=== PATIENT | female | born 1975 | race Caucasian/White ===

== ENCOUNTER 2017-04-20 21:46 | Emergency (ER) | payer SELFPAY ==
[~2017-04-20 21:46] MED LIST: DEPO150I IM; MEDR150P IM
--- NOTE | 2017-04-20 22:04 | PD ---
HPI Chief Complaint: Chest Pain Time Seen by Provider: 21:54 Travel History International Travel<30 days: No Contact w/Intl Traveler<30days: No Traveled to known affect area: No History of Present Illness HPI 41-year-old female complains of chest pain, low back pain, coughing congestion. Patient states that she starting having coughing congestion with productive cough for the past 2 weeks. Patient started having left leg cramping 2 days ago. Patient started having low back pain with radiation to the chest area about 2 hours prior to arrival. Patient states the pain is sharp pain including anterior and posterior aspect of the chest wall. Patient denies any palpitation diaphoresis. Patient states that she has intermittent nausea. Patient also complains of shortness of breath. Patient states that the chest pain is worse with deep inspiration. Patient denies any headache. Patient denies any neck pain. Patient denies any fever chills. Patient denies abdominal pain. Patient denies any dysuria or frequency. Patient denies vaginal discharge or bleeding. Patient denies history hypertension, diabetes, hyperlipidemia. Patient is a nonsmoker. Patient denies family history of heart disease. PFSH Past Medical History Diminished Hearing: No Past Surgical History Tonsillectomy: Yes Other Surgery: Yes (BREAST AUGMENTATION) Social History Alcohol Use: Yes (beer daily) Tobacco Use: Yes (1 2 PPD) Substance Use: No Allergies-Medications (Allergen,Severity, Reaction): Coded Allergies: No Known Allergies (Verified , 01/21/17) Reported Meds & Prescriptions Reported Meds & Active Scripts Active Depo-Provera Inj (Medroxyprogesterone Inj) 150 Mg/Ml Inj 150 Mg IM Q90D Review of Systems General / Constitutional: No: Fever Eyes: No: Visual changes HENT: No: Headaches Cardiovascular: Positive: Chest Pain or Discomfort Respiratory: Positive: Cough, Shortness of Breath Gastrointestinal: No: Abdominal Pain Genitourinary: No: Dysuria Musculoskeletal: No: Pain Skin: No Rash Neurologic: No: Weakness Psychiatric: No: Depression Endocrine: No: Polydipsia Hematologic/Lymphatic: No: Easy Bruising Physical Exam Narrative GENERAL: Well-nourished, well-developed patient. SKIN: Focused skin assessment warm/dry. HEAD: Normocephalic. EYES: No scleral icterus. No injection or drainage. NECK: Supple, trachea midline. No JVD or lymphadenopathy. CARDIOVASCULAR: Regular rate and rhythm without murmurs, gallops, or rubs. RESPIRATORY: Breath sounds equal bilaterally. No accessory muscle use. GASTROINTESTINAL: Abdomen soft, non-tender, nondistended. MUSCULOSKELETAL: No cyanosis, or edema. BACK: Nontender without obvious deformity. No CVA tenderness. Neurologic exam normal. Data Data Last Documented VS Vital Signs Date Time Temp Pulse Resp B/P (MAP) Pulse Ox O2 Delivery O2 Flow Rate FiO2 04/20/17 22:43 16 97 Room Air 04/20/17 22:28 108 Orders Orders Electrocardiogram (04/20/17 21:59) Complete Blood Count With Diff (04/20/17 21:59) Comprehensive Metabolic Panel (04/20/17 21:59) Creatine Kinase (Cpk) (04/20/17 21:59) Troponin I (04/20/17 21:59) Prothrombin Time / Inr (Pt) (04/20/17 21:59) Act Partial Throm Time (Ptt) (04/20/17 21:59) Urinalysis - C+S If Indicated (04/20/17 21:59) Thyroid Stimulating Hormone (04/20/17 21:59) Influenzae A/B Antigen (04/20/17 21:59) Chest, Single Ap (04/20/17 21:59) Iv Access Insert/Monitor (04/20/17 21:59) Ecg Monitoring (04/20/17 21:59) Oximetry (04/20/17 21:59) Ed Urine Pregnancytest Poc (04/20/17 21:59) Sodium Chlor 0.9% 1000 Ml Inj (Ns 1000 M (04/20/17 22:15) Ketorolac Inj (Toradol Inj) (04/20/17 23:00) Labs Laboratory Tests Test 04/20/17 22:10 04/20/17 22:20 White Blood Count 7.6 TH/MM3 Red Blood Count 4.26 MIL/MM3 Hemoglobin 15.0 GM/DL Hematocrit 44.9 % Mean Corpuscular Volume 105.5 FL Mean Corpuscular Hemoglobin 35.3 PG Mean Corpuscular Hemoglobin Concent 33.5 % Red Cell Distribution Width 12.7 % Platelet Count 183 TH/MM3 Mean Platelet Volume 8.0 FL Neutrophils (%) (Auto) 53.4 % Lymphocytes (%) (Auto) 39.0 % Monocytes (%) (Auto) 5.3 % Eosinophils (%) (Auto) 1.5 % Basophils (%) (Auto) 0.8 % Neutrophils # (Auto) 4.1 TH/MM3 Lymphocytes # (Auto) 2.9 TH/MM3 Monocytes # (Auto) 0.4 TH/MM3 Eosinophils # (Auto) 0.1 TH/MM3 Basophils # (Auto) 0.1 TH/MM3 CBC Comment DIFF FINAL Differential Comment Blood Urea Nitrogen 7 MG/DL Creatinine 0.76 MG/DL Random Glucose 94 MG/DL Total Protein 7.4 GM/DL Albumin 3.9 GM/DL Calcium Level 8.4 MG/DL Alkaline Phosphatase 59 U/L Aspartate Amino Transf (AST/SGOT) 23 U/L Alanine Aminotransferase (ALT/SGPT) 25 U/L Total Bilirubin 0.5 MG/DL Sodium Level 141 MEQ/L Potassium Level 3.9 MEQ/L Chloride Level 108 MEQ/L Carbon Dioxide Level 25.2 MEQ/L Anion Gap 8 MEQ/L Estimat Glomerular Filtration Rate 84 ML/MIN Total Creatine Kinase 124 U/L Troponin I LESS THAN 0.02 NG/ML Urine Color STRAW Urine Turbidity CLEAR Urine pH 6.0 Urine Specific [place] 1.003 Urine Protein NEG mg/dL Urine Glucose (UA) NEG mg/dL Urine Ketones NEG mg/dL Urine Occult Blood TRACE Urine Nitrite NEG Urine Bilirubin NEG Urine Leukocyte Esterase NEG Urine WBC 0-2 /hpf Urine Squamous Epithelial Cells 0-5 /hpf Urine Bacteria OCC /hpf Microscopic Urinalysis Comment CULT NOT INDICATED MDM Medical Decision Making Medical Screen Exam Complete: Yes Emergency Medical Condition: Yes Interpretation(s) 22 58 PM. CBC with WBC 7.6. Hemoglobin 15.0, hematocrit 44.9. MCV 105.5. CMP within normal limit. Calcium 8.4. Cardiac enzymes are normal. Influenza AB antigen negative. UA is negative. Urine test negative. Differential Diagnosis Differential diagnosis including musculoskeletal, angina, LA, PE, pneumothorax. Narrative Course 41-year-old female with chest pain, low back pain, coughing congestion. Toradol 30 mg IV. Diagnosis Primary Impression: Atypical chest pain Additional Impressions: Muscle strain URI (upper respiratory infection) Qualified Codes: J06.9 - Acute upper respiratory infection, unspecified; B97.89 - Other viral agents as the cause of diseases classified elsewhere Patient Instructions: General Instructions Additional Instructions: Take medication as needed for pain. Follow-up with personal physician. Return if increasing chest pain shortness of breath. Med/Other Pt SpecificInfo: Prescription(s) given Scripts Methocarbamol (Robaxin) 750 Mg Tab 750 MG PO QID for Muscle Spasm, #40 TAB 0 Refills Prov: Molina Iraheta MD 04/20/17 Ibuprofen (Ibuprofen) 600 Mg Tab 600 MG PO TID for Pain, #30 TAB 0 Refills Prov: Molina Iraheta MD 04/20/17 Disposition: 01 DISCHARGE HOME Condition: Stable Molina Iraheta MD Apr 20, 2017 22:04
[2017-04-20] MEDS ORDERED: SODIUM CHLOR 0.9% 1000 ML INJ 1,000 ML IV ONE (22:15)
[2017-04-20 22:28] VITALS: PULSE 108; RESP 18; O2SAT 97
[2017-04-20 22:29] LABS: AUTOMATED NEUTROPHIL # 4.1 TH/MM3 (1.8-7.7); BASOPHIL # 0.1 TH/MM3 (0-0.2); BASOPHIL % 0.8 % (0.0-2.0); EOSINOPHIL # 0.1 TH/MM3 (0-0.4); EOSINOPHIL % 1.5 % (0.0-4.0); HEMATOCRIT 44.9 % (35.0-46.0); LYMPHOCYTE # 2.9 TH/MM3 (1.0-4.8); MEAN CELL VOLUME 105.5 FL (80.0-100.0); MEAN CORPUSCULAR HEMOGLOBIN 35.3 PG (27.0-34.0); MEAN CORPUSCULAR HGB CONC 33.5 % (32.0-36.0); MONO % 5.3 % (0.0-8.0); MONOCYTE # 0.4 TH/MM3 (0-0.9); NEUT % 53.4 % (16.0-70.0); PLATELET COUNT 183 TH/MM3 (150-450); RED BLOOD COUNT 4.26 MIL/MM3 (4.00-5.30); RED CELL DISTRIBUTION WIDTH 12.7 % (11.6-17.2); WHITE BLOOD COUNT 7.6 TH/MM3 (4.0-11.0)
[2017-04-20 22:31] LABS: BILIRUBIN, URINE NEG (NEG); BLOOD, URINE TRACE (NEG); GLUCOSE,URINE NEG (NEG); KETONE, URINE NEG (NEG); NITRITE,URINE NEG (NEG); URINE LEUKOCYTE ESTERASE NEG (NEG)
[2017-04-20 22:40] LABS: CHLORIDE 108 MEQ/L (98-107); SODIUM (NA) 141 MEQ/L (136-145)
[2017-04-20 22:42] LABS: URINE COLOR STRAW (YELLW/STRAW)
[2017-04-20 22:43] VITALS: RESP 16; O2SAT 97
[2017-04-20 22:43] LABS: BACTERIA, URINE OCC /hpf; SQUAMOUS EPITHELIAL CELL URINE 0-5 /hpf (0-5)
[2017-04-20 22:44] LABS: ALBUMIN 3.9 GM/DL (3.4-5.0); BICARBONATE 25.2 MEQ/L (21.0-32.0); CALCIUM 8.4 MG/DL (8.5-10.1); GLUCOSE,RANDOM 94 MG/DL (74-106)
[2017-04-20 22:44] LABS: WBC, URINE 0-2 /hpf (0-5)
[2017-04-20 22:45] LABS: BLOOD UREA NITROGEN 7 MG/DL (7-18)
[2017-04-20 22:47] LABS: ALT (GPT) 25 U/L (10-53)
[2017-04-20 22:48] LABS: AST (GOT) 23 U/L (15-37); CREATININE 0.76 MG/DL (0.50-1.00); GLOMERULAR FILTRATION RATE 84 ML/MIN (>89)
[2017-04-20 22:49] LABS: TOTAL BILIRUBIN ADULT 0.5 MG/DL (0.2-1.0); TOTAL PROTEIN 7.4 GM/DL (6.4-8.2)
[2017-04-20 22:50] LABS: ALKALINE PHOSPHATASE 59 U/L (45-117)
[2017-04-20 22:52] LABS: TROPONIN I LESS THAN 0.02 NG/ML (0.02-0.05)
[2017-04-20] MEDS ORDERED: KETOROLAC TROMETHAMINE 30 MG/ML (IVP) VIAL IV PUSH ONE (23:00)
[2017-04-20] MEDS ORDERED: ROBA750T PO (23:03)
[2017-04-20] MEDS ORDERED: IBUP-232 PO (23:03)
[2017-04-20 23:08] LABS: PROTHROMBIN TIME - PATIENT 9.8 SEC (9.8-11.6)
--- NOTE | 2017-04-20 23:24 | RADRPT ---
EXAM DATE/TIME: 04/20/2017 22:58 [facility] COMPARISON: No previous studies available for comparison. INDICATIONS : Chest pain tonight. MEDICAL HISTORY : None. SURGICAL HISTORY : None. ENCOUNTER: Initial ACUITY: 1 day PAIN SCORE: 10/10 LOCATION: Bilateral chest FINDINGS: A single view of the chest demonstrates the lungs to be symmetrically aerated without evidence of mas s, infiltrate or effusion. The cardiomediastinal contours are unremarkable. Osseous structures are intact. CONCLUSION: 1. No acute cardiopulmonary disease. Pratik Hair MD on April 20, 2017 at 23:21 Board Certified Radiologist. This report was verified electronically.
[2017-04-20 23:27] VITALS: BP 113/77
--- NOTE | 2017-04-21 21:38 | EKG ---
Date Performed: 04/20/2017 Time Performed: 22:03:19 PTAGE: 41 years EKG: SINUS TACHYCARDIA ABNORMAL RHYTHM ECG PREVIOUS TRACING : 08/16/2013 21.39 Compared to the previous tracing rate slower DOCTOR: Sidney Shepherd Interpretating Date/Time 04/21/2017 21:37:39
== END 2017-04-20 23:40 | disposition home or self-care (01) ==
LOC: PHED 21:46
DX: R07.89 Other chest pain (principal); S39.012A Strain of muscle, fascia and tendon of lower back, initial encounter; J06.9 Acute upper respiratory infection, unspecified; B97.89 Other viral agents as the cause of diseases classified elsewhere; R05 Cough; R25.2 Cramp and spasm; R11.0 Nausea; R06.02 Shortness of breath; R94.31 Abnormal electrocardiogram [ECG] [EKG]; X58.XXXA Exposure to other specified factors, initial encounter
CPT/HCPCS: 71045; 80053; 81001; 82550; 84443; 84484; 84703; 85025; 85610; 85730; 87804; 93005; 96361; 96374; 99285; J1885; J7030